=== PATIENT | male | born 1935 | race Caucasian/White ===

== ENCOUNTER 2017-03-01 10:33 | Emergency (ER) | payer OTHER ==
[~2017-03-01] VITALS: Ht 165.1 cm; Wt 65.9 kg
[2017-03-01 10:37] VITALS: Ht 165.1 cm; Wt 65.9 kg
[2017-03-01] MEDS ORDERED: SOD CHLORIDE 0.9% 1,000 ML IV STA (11:31)
[2017-03-01 11:55] LABS: BASOPHIL # 0.1 10^3/ul (0.0-0.1); BASOPHILS % 0.5 % (0.0-2.0); EOSINOPHILS # 0.1 10^3/ul (0.0-0.5); EOSINOPHILS % 0.6 % (0.0-7.0); HEMATOCRIT 35.5 % (42.0-52.0); HEMOGLOBIN 11.8 g/dl (14.0-18.0); LYMPHOCYTES % 8.7 % (15.0-51.0); MEAN CORPUSCULAR HEMOGLOBIN 32.5 pg (29.0-33.0); MEAN CORPUSCULAR HGB CONC 33.2 g/dl (32.0-37.0); MEAN CORPUSCULAR VOLUME 97.8 fl (82.0-101.0); MEAN PLATELET VOLUME 8.9 fl (7.4-10.4); MONOCYTE # 0.6 10^3/ul (0.3-0.9); MONOCYTES % 5.4 % (0.0-11.0); NEUTROPHIL # 9.5 10^3/ul (1.6-7.5); NEUTROPHILS % 84.3 % (39.0-77.0); PLATELET COUNT 195 10^3/UL (140-415); RED BLOOD COUNT 3.63 10^6/ul (4.70-6.10); WHITE BLOOD COUNT 11.2 10^3/ul (4.8-10.8)
[2017-03-01 12:13] LABS: INR 1.09; PARTIAL THROMBOPLASTIN TIME 23.1 Sec (25.0-35.0); PROTIME 14.1 Sec (12.2-14.2); PT RATIO 1.1
[2017-03-01 12:16] LABS: ANION GAP 10 (8-16)
--- NOTE | 2017-03-01 12:27 | RADRPT ---
PROCEDURE: Noncontrast CT Head. CLINICAL INDICATION: Syncope. Status post fall. TECHNIQUE: Noncontrast CT of the head was obtained. The administered radiation dose was CTDI vol = 44.46 mGy, DLP = 720.23 mGy-cm. One or more of the following dose reduction techniques were used: Au tomated exposure control, Adjustment of the mA and/or kV according to patient size, or Use of iterat vonnie reconstruction technique. COMPARISON: There are no similar studies submitted for comparison. FINDINGS: There is mild generalized cerebral volume loss. There is moderate periventricular hypoattenuation suggesting chronic microvascular ischemic changes. There is acute diffuse bilateral frontal and anterior falcine subarachnoid hemorrhage. There is also mild bilateral temporal lobe subarachnoid hemorrhage as well as right vertex subarachnoid hemorrhag e. There is an acute 2 mm left frontal temporal parietal subdural hemorrhage. There is also associated anterior falcine acute subdural hemorrhage measuring up to 3 mm. There is trace rightward midline shift. There is no loss of sierra-white differentiation to suggest acute territorial infarction. The orbits are within normal limits. The paranasal sinuses are well aerated. No destructive osseous lesion is identified. There is mild right parietal scalp subcutaneous hematom a with laceration. There is a nondisplaced right occipital/suboccipital skull fracture extending int o the right foramen magnum with fracture extending to the left of the foramen magnum. There is mild right suboccipital subcutaneous hematoma. IMPRESSION: 1. Acute diffuse bilateral frontal and anterior falcine subarachnoid hemorrhage. There is also mild bilateral temporal lobe subarachnoid hemorrhage as well as right vertex subarachnoid hemorrhage. 2. Acute 2 mm left frontal temporal parietal subdural hemorrhage . There is also an acute anterior f alcine acute subdural hemorrhage measuring up to 3 mm. 3. Mild generalized cerebral volume loss. 4. Moderate chronic microvascular ischemic changes. 5. Mild right parietal scalp subcutaneous hematoma with laceration. There is mild right suboccipital subcutaneous hematoma. 6. Nondisplaced right occipital/suboccipital skull fracture extending into the right foramen magnum as well as fracture extending into the left of the foramen magnum. Further findings as detailed above. These findings were discussed with Juan Antonio Dozier on 03/01/2017 at 12:22 PM. RPTAT: PP .Kavin Herrera MD, MD Date Time Electronically viewed and signed by .Kavin Herrera MD, MD on 03/01/2017 12:27 .F/
[2017-03-01] MEDS ORDERED: SIMV20TA PO (12:30)
[2017-03-01] MEDS ORDERED: LIDOCAINE 2%/EPI MPF (SDV) 20 ML VIAL INJ ONE (12:30)
[2017-03-01] MEDS ORDERED: HYDR25TA6 PO (12:31)
[2017-03-01] MEDS ORDERED: ASPI81TA3 PO (12:31)
--- NOTE | 2017-03-01 12:34 | RADRPT ---
PROCEDURE: CT Cervical Spine without contrast. CLINICAL INDICATION: Trauma. Status post fall. TECHNIQUE: Noncontrast CT of the cervical spine was performed with axial images. Coronal and sagitta l images were also performed. The administered radiation dose was CTDI vol = 22.16 mGy, DLP = 451.2 3 mGy-cm. One or more of the following dose reduction techniques were used: Automated exposure contr ol, Adjustment of the mA and/or kV according to patient size, or Use of iterative reconstruction carol hnique. COMPARISON: There are no similar studies submitted for comparison. FINDINGS: There is reversal of the cervical lordosis suggesting muscle spasm and/or degenerative changes. The vertebral body heights are maintained. There is no destructive osseous lesion. No acute fracture is identified. C2-C3 : There is mild disc space narrowing. There is a 2 mm circumferential disc osteophyte complex with mild to moderate spinal canal stenosis. There is severe left and moderate facet arthropathy and bilateral uncovertebral hypertrophy causing mild to moderate left without right foraminal stenosis. C3-C4 : There is mild disc space narrowing. 1 mm grade 1 anterolisthesis with a circumferential pseu do disc osteophyte complex mildly indenting the spinal cord with moderate spinal canal stenosis. The re is severe right and mild left facet arthropathy and bilateral uncovertebral hypertrophy causing s evere right and moderate to severe left foraminal stenosis. This affects the exiting right greater t guallpa left C4 nerve roots. C4-C5 : There is severe disc space narrowing. There is a 3 mm circumferential disc osteophyte comple x impinging the spinal cord with moderate to severe spinal canal stenosis. There is moderate bilater al facet arthropathy and bilateral uncovertebral hypertrophy causing severe bilateral foraminal sten osis. This affects the exiting bilateral C5 nerve roots. C5-C6 : There is severe disc space narrowing. There is 1 mm retrolisthesis with a circumferential di sc osteophyte complex impinging the spinal cord with severe spinal canal stenosis. There is severe r ight and moderate left facet arthropathy and bilateral uncovertebral hypertrophy causing moderate to severe bilateral foraminal stenosis. This likely affects the exiting bilateral C6 nerve roots. C6-C7 : There is severe disc space narrowing. There is 2 mm retrolisthesis with a circumferential di sc osteophyte complex impinging the spinal cord with severe spinal canal stenosis. There is moderate bilateral facet arthropathy and bilateral uncovertebral hypertrophy causing severe bilateral forami nal stenosis. This affects the exiting bilateral C7 nerve roots. C7-T1 : There is moderate disc space narrowing. There is 1 mm of grade 1 anterolisthesis with a broa d-based pseudo disc bulge without spinal canal stenosis. There is severe left and moderate facet art hropathy and bilateral uncovertebral hypertrophy causing mild to moderate left without right foramin al stenosis. Right suboccipital skull fractures again noted extending into the bilateral foramen magnum. IMPRESSION: 1. No acute cervical spine fracture. There is a right suboccipital fracture extending into the dc en magnum. Please refer to the CT of the head report from the same day. 2. Multilevel spinal canal stenosis with severe C5-C6, severe C6-C7, moderate to severe C4-C5 spinal canal stenosis with spinal cord impingement at these levels. There is limited evaluation of the spi nal cord on CT. If clinically considered for spinal cord contusion, noncontrast MRI of the cervical spine may be performed as clinically warranted. 3. Multilevel bilateral foraminal stenosis affecting the exiting left C4, bilateral C5, bilateral C6 , and bilateral C7 nerve roots as detailed above. 4. Reversal of the cervical lordosis suggesting muscle spasm and/or degenerative changes. Further findings as detailed above. RPTAT: PP .Kavin Herrera MD, MD Date Time Electronically viewed and signed by .Kavin Herrera MD, on 03/01/2017 12:33 .F/
[2017-03-01 12:36] LABS: BLOOD UREA NITROGEN 18 mg/dl (7-20); CALCIUM 8.6 mg/dl (8.4-10.2); CARBON DIOXIDE 28 mmol/L (21-31); CHLORIDE 107 mmol/L (97-110); CREATININE 0.71 mg/dl (0.61-1.24); GLUCOSE 147 mg/dl (70-220); POTASSIUM 3.8 mmol/L (3.5-5.1); SODIUM 141 mmol/L (135-144); TROPONIN-I < 0.012 ng/ml (0.00-0.12)
--- NOTE | 2017-03-01 13:36 | RADRPT ---
PROCEDURE: XR Chest. CLINICAL INDICATION: Syncope . Dyspnea TECHNIQUE: Single frontal chest x-ray. COMPARISON: None. FINDINGS: The lungs are clear of acute infiltrates, edema, effusions, or masses. Calcific atherosclerosis of t he tortuous thoracic aorta is present.. The cardiomediastinal silhouette is unremarkable. The osseo us structures are intact. IMPRESSION: No acute cardiopulmonary disease. RPTAT: KK .Mike Redman MD, MD Date Time Electronically viewed and signed by .Mike Redman MD, on 03/01/2017 13:36 .L/
--- NOTE | 2017-03-01 13:54 | ERA ---
ER Documentation Chief Complaint Date/Time DATE: 03/01/17 TIME: 13:47 Chief Complaint BROUGHT IN VIA EMS DUE TO MECHICAL FALL WITH LACERATION HPI 81-year-old male was brought in by paramedics from home for a fall with a head laceration and bleeding. Patient states that he became dizzy for a little while but did not fall. He is a very poor historian and is acutely confused. He is able to answer most questions ROS All systems reviewed and are negative except as per history of present illness. Medications Home Meds Reported Medications Aspirin* (Aspirin* Chew) 81 Mg Tab.chew, 81 MG PO DAILY, TAB.CHEW 03/01/17 Hydrochlorothiazide* (Hydrochlorothiazide*) 25 Mg Tab, 25 MG PO DAILY, #30 TAB 03/01/17 Simvastatin* (Zocor*) 20 Mg Tablet, 20 MG PO QHS, #30 TAB 03/01/17 Allergies Allergies: Coded Allergies: No Known Allergy (Unverified , 03/01/17) PMhx/Soc Medical and Surgical Hx: pt denies Medical Hx, pt denies Surgical Hx Hx Alcohol Use: No Hx Substance Use: No Hx Tobacco Use: No Smoking Status: Never smoker Physical Exam Vitals Vital Signs Date Time Temp Pulse Resp B/P Pulse Ox O2 Delivery O2 Flow Rate FiO2 03/01/17 14:09 74 20 155/79 99 Room Air 03/01/17 10:37 98.5 70 18 167/76 98 Physical Exam Const: [] Moderate distress Head: Atraumatic Eyes: Normal Conjunctiva EOMI, MARIE ENT: Normal External Ears, Nose and Mouth. Neck: Full range of motion..~ No meningismus. Resp: Clear to auscultation bilaterally Cardio: Regular rate and rhythm, no murmurs Abd: Soft, non tender, non distended. Normal bowel sounds Skin: No petechiae or rashes Back: No midline or flank tenderness Ext: No cyanosis, or edema Neur: Awake and alert and oriented 2, confused, able to perform cranial nerve tests with cranial 2 through 12 intact, able to perform cerebellar finger to nose test without difficulty, normal gait Psych: Normal Mood and Affect Result Diagram: 03/01/17 1142 03/01/17 1142 Results 24 hrs Laboratory Tests Test 03/01/17 11:42 White Blood Count 11.210^3/ul Red Blood Count 3.6310^6/ul Hemoglobin 11.8g/dl Hematocrit 35.5% Mean Corpuscular Volume 97.8fl Mean Corpuscular Hemoglobin 32.5pg Mean Corpuscular Hemoglobin Concent 33.2g/dl Red Cell Distribution Width 13.0% Platelet Count 33113^3/UL Mean Platelet Volume 8.9fl Neutrophils % 84.3% Lymphocytes % 8.7% Monocytes % 5.4% Eosinophils % 0.6% Basophils % 0.5% Nucleated Red Blood Cells % 0.0/100WBC Neutrophils # 9.510^3/ul Lymphocytes # 1.010^3/ul Monocytes # 0.610^3/ul Eosinophils # 0.110^3/ul Basophils # 0.110^3/ul Nucleated Red Blood Cells # 0.010^3/ul Prothrombin Time 14.1Sec Prothrombin Time Ratio 1.1 INR International Normalized Ratio 1.09 Activated Partial Thromboplast Time 23.1Sec Sodium Level 141mmol/L Potassium Level 3.8mmol/L Chloride Level 107mmol/L Carbon Dioxide Level 28mmol/L Anion Gap 10 Blood Urea Nitrogen 18mg/dl Creatinine 0.71mg/dl Glucose Level 147mg/dl Calcium Level 8.6mg/dl Troponin I < 0.012ng/ml Current Medications Medications (Trade) Dose Ordered Sig/Jocelin Route PRN Reason Start Time Stop Time Status Last Admin Dose Admin Sodium Chloride (NS) 1,000 ml @ 1,000 mls/hr Q1H STAT IV 03/01/17 11:31 03/01/17 12:30 DC 03/01/17 13:39 Lidocaine/ Epinephrine (Xylocaine 2%/ Epi Mpf(Sdv)) 20 ml ONCE ONCE INJ 03/01/17 12:30 03/01/17 12:31 DC 03/01/17 12:30 Procedures/MDM 81-year-old male with traumatic subarachnoid hemorrhage and skull fracture. Patient has a GCS of 14 out of 15. Head of the bed was elevated. Patient was still protecting his airway. No signs of acute cardiac ischemia or other abnormalities. Had laceration repaired in ER. [facility] called [facility] and unable to accept transfer of this patient. [facility] [place] [facility] is able to accept the patient. Were able to get a critical care ambulance here in 30 minutes to transfer the patient. He still protecting his own airway answering questions but is confused. There is great concern for decompensation is being monitored very closely until transfer. CT head interpretation: Traumatic subarachnoid hemorrhage or skull fracture. Subdural hemorrhage as well. No current mass-effect or midline shift EKG interpretation: Normal sinus rhythm rate of 72, left axis deviation, no ST or T-wave changes concerning for acute ischemia, normal intervals. Chest x-ray interpretation: I see no acute process, no widened mediastinum, no palmar edema, no pneumothorax, no fractures Monitor interpretation: Normal sinus rhythm arrhythmia Care time greater than 35 minutes: This includes management of a traumatic subdural hemorrhage with extensive reevaluation for decompensation, consideration of intubation, review of chart, discussion with multiple neurosurgeons. This does not include billable procedures Laceration repair: Girma-circular scalp laceration repair, complicated by mild active bleeding. Laceration was copiously irrigated with normal saline. The ties with 4 cc of lidocaine with epinephrine. 8 dayron were placed in the 8 cm laceration good closure and hemostasis. Patient taught procedure well no complications Departure Diagnosis: Primary Impression: Skull fracture Additional Impressions: Altered mental status Subarachnoid hemorrhage Subdural hemorrhage Condition: Critical WINSOMELORENZA LINDO Mar 01, 2017 13:54
[2017-03-01] MEDS ORDERED: FENTAnyl 50 MCG/ML VIAL IV ONE (15:30)
[2017-03-01 15:42] VITALS: BP 150/74; PULSE 70; RESP 19; TEMP 98.6
== END 2017-03-01 17:05 | disposition short-term general hospital (02) ==
LOC: E/R 10:33
DX: S02.91XA Unspecified fracture of skull, initial encounter for closed fracture (principal); S06.6X0A Traumatic subarachnoid hemorrhage without loss of consciousness, initial encounter; S06.5X0A Traumatic subdural hemorrhage without loss of consciousness, initial encounter; R41.82 Altered mental status, unspecified; R07.9 Chest pain, unspecified; W18.39XA Other fall on same level, initial encounter; Y92.9 Unspecified place or not applicable; Z79.82 Long term (current) use of aspirin
CPT/HCPCS: 12004; 36415; 70450; 71010; 72125; 80048; 84484; 85025; 85610; 85730; 96374; 99291; J3010; J7030; 93005